=== PATIENT | female | born 1995 | race American Indian/Alaskan Native ===

== ENCOUNTER 2018-10-06 17:59 | Emergency (ER) | payer MEDICAID ==
[2018-10-06 18:12] VITALS: BMI 23.3
[2018-10-06 18:18] VITALS: RESP 18; O2SAT 98
--- NOTE | 2018-10-06 18:30 | ED PDOC ---
Arrival/HPI - General Chief Complaint: Abdominal Pain Time Seen by Provider: 10/06/18 18:14 - History of Present Illness Narrative History of Present Illness (Text): 10/06/18 18:30 A 22 year old female, whose past medical history includes , presents to the emergency department complaining of abdominal pain for 2 days. States recently finding out she is 3 days ago. LMP was 09/02/2018. Patient reports . Patient denies any nausea, vomiting, diarrhea, urinary output changes, vaginal bleeding/discharge, dysuria, hematuria, or any other complaints at this time. No PMD Time/Duration: < week (2 days) Past Medical History - Provider Review Nursing Documentation Reviewed: Yes - Psychiatric Hx Substance Use: No Family/Social History - Physician Review Nursing Documentation Reviewed: Yes Family/Social History: No Known Family HX Smoking Status: Never Smoked Hx Alcohol Use: No Hx Substance Use: No Allergies/Home Meds Allergies/Adverse Reactions: Allergies No Known Allergies Allergy (Verified 10/06/18 18:12) Review of Systems - Physician Review All systems were reviewed & negative as marked: Yes - Review of Systems Gastrointestinal: Abdominal Pain. absent: Diarrhea, Nausea, Vomiting Genitourinary Female: absent: Dysuria, Hematuria, Urine Output Changes, Vaginal Bleeding, Vaginal Discharge Physical Exam - Physical Exam Narrative Physical Exam (Text): Gen: VS reviewed, alert, well developed, well nourished, nontoxic, mild distress. ENT: normal pharynx. Eye: EOMI, PERRL. Neck: no JVD, supple, no adenopathy. CV: regular rate, regular rhythm, no rubs, no murmur, no gallops, S1, S2, pulses equal and strong. Pulm: no distress, clear to auscultation, no wheeze, no rhonchi, breath sounds equal, no rales. Abd: soft, nontender, no guarding, no rebound, no rigidity, normal bowel sounds. Ext: no edema. Skin: good color, no rash, no cyanosis. Psych: responds appropriately to questions, normal affect. Neuro: oriented x 3, CN2-12 intact grossly, motor intact, sensation intact. Vital Signs Reviewed: Yes Vital Signs Temp Pulse Resp BP Pulse Ox 10/06/18 18:12 98.7 F 72 18 115/52 L 98 Temperature: Afebrile Blood Pressure: Normal Pulse: Regular Respiratory Rate: Normal Appearance: Positive for: Well-Appearing, Non-Toxic, Comfortable Pain Distress: None Mental Status: Positive for: Alert and Oriented X 3 Medical Decision Making ED Course and Treatment: 10/06/18 18:31 Impression: 22 year old female with abdominal pain. No acute findings on physical exam. Plan: -- Labs -- POC Urine Test -- Transvaginal Ultrasound -- Reassess and disposition Progress Notes: 10/06/18 20:18 early gestation, no bleeding, no significant pain, early IUP. patient understand and agreeable to return immediately for any bleeding or escalation of pain. refer to supervisor type bar and segment. - RAD Interpretation Narrative RAD Interpretations (Text): 10/06/18 20:22 US prelim report: early gestation, +gest sac, no hr seen. Radiology Orders: 10/06/18 18:22 TRANSVAGINAL [US] Stat - Scribe Statement The provider has reviewed the documentation as recorded by the Scribe Jayde Robles Provider Scribe Attestation: All medical record entries made by the Scribe were at my direction and personally dictated by me. I have reviewed the chart and agree that the record accurately reflects my personal performance of the history, physical exam, medical decision making, and the department course for this patient. I have also personally directed, reviewed, and agree with the discharge instructions and disposition. Disposition/Present on Arrival - Present on Arrival Any Indicators Present on Arrival: No History of DVT/PE: No History of Uncontrolled Diabetes: No Urinary Catheter: No History of Decub. Ulcer: No History Surgical Site Infection Following: None - Disposition Have Diagnosis and Disposition been Completed?: Yes Diagnosis: at early stage Disposition: HOME/ ROUTINE Disposition Time: 20:19 Patient Plan: Discharge Condition: STABLE Discharge Instructions (ExitCare): Care, - The Second Month Additional Instructions: Return immediately for any problems or concerns especially bleeding or worsening pain. MIKE MARTINEZ, thank you for letting us take care of you today. Your provider was Dr. Thanh Willard and you were treated for early . The emergency medical care you received today was directed at your acute symptoms. If you were prescribed any medication, please fill it and take as directed. It may take several days for your symptoms to resolve. Return to the Emergency Department if your symptoms worsen, do not improve, or if you have any other problems. Please contact your doctor or call one of the physicians/clinics you have been referred to that are listed on the Patient Visit Information form that is included in your discharge packet. Bring any paperwork you were given at discharge with you along with any medications you are taking to your follow up visit. Our treatment cannot replace ongoing medical care by a primary care provider outside of the emergency department. Thank you for allowing the [facility] team to be part of your care today. If you had an X-Ray or CT scan: A Radiologist will review the ED reading if any change in treatment is needed we will contact you. If you had a blood, urine, or wound culture: It will take several days for the results, if any change in treatment is needed we will contact you. If you had an STI test: It will take 48 hours for the results. Please call after 1 week if you have not heard back. Prescriptions: Vit 36/Iron/Folate 6 [Prenate Elite Tablet] 1 each PO DAILY 90 Days tablet Referrals: [facility] [Outside] - Follow up with primary Connor Dumont MD [Staff Provider] - Follow up with primary Forms: [employer] ([place]an), WORK NOTE
[2018-10-07 00:33] VITALS: BP 118/56; PULSE 68; TEMP 98.6
--- NOTE | 2018-10-07 10:26 | US ---
Date of service: 10/06/2018 PROCEDURE: OB Pelvic Ultrasound HISTORY: early gestation, pain, ectopic study COMPARISON: None available. FINDINGS: UTERUS: Single intrauterine gestation. Gestational sac diameter measures 0.53 cm too small to accurately assess gestational age. Yolk sac and pole are not visualized on the current examination. Date of delivery (Ultrasound estimated) : Leia-gestational hemorrhage: None. Uterus measures point by 4.9 x 5.8 cm. No mass CERVIX: Long and closed. No cervical abnormality seen. RIGHT OVARY: Measures 2.2 x 1.7 x 1.1 cm. No mass. Normal flow. LEFT OVARY: Measures 2.3 x 2.2 x 1.9 cm. No mass. Normal flow. FREE FLUID: None. OTHER FINDINGS: None. IMPRESSION: Single intrauterine gestational sac too small to estimate gestational age. Yolk sac and pole are not visualized. Clinical and ultrasound follow-up is recommended to assess viable . A preliminary report was provided by [facility].
== END 2018-10-06 20:30 | disposition home or self-care (01) ==
LOC: ED 17:59
DX: O26.91 Pregnancy related conditions, unspecified, first trimester (principal); Z3A.00 Weeks of gestation of pregnancy not specified